=== PATIENT | male | born 1990 | race Caucasian/White ===

== ENCOUNTER 2019-07-19 14:13 | Emergency (ER) | payer OTHER ==
[~2019-07-19] VITALS: Ht 193 cm; Wt 104.3 kg
[2019-07-19] MEDS ORDERED: KEFLEX500 M1 PO (15:07)
[2019-07-19] MEDS ORDERED: TYLENOL WITH CO1 TA1 PO (15:07)
[2019-07-19 15:21] VITALS: BP 145/78
== END 2019-07-19 15:22 | disposition home or self-care (01) ==
LOC: M.ERS 14:13
DX: S61.412A Laceration without foreign body of left hand, initial encounter (principal); F17.210 Nicotine dependence, cigarettes, uncomplicated; W31.1XXA Contact with metalworking machines, initial encounter; Y93.89 Activity, other specified; Y92.89 Other specified places as the place of occurrence of the external cause; Y99.8 Other external cause status